=== PATIENT | female | born 1960 | race Caucasian/White ===

== ENCOUNTER 2017-01-25 15:14 | Emergency (ER) | payer BC ==
[2017-01-25 17:44] VITALS: BP 108/62
--- NOTE | 2017-01-25 17:52 | UC ---
Skin Complaint HPI - HPI Summary HPI Summary: Found a tick in the left groin with pain. Tick non-engorged. - History of Current Complaint Time Seen by Provider: 01/25/17 17:41 Stated Complaint: TICK BITE Hx Last Menstrual Period: 07-13-15 - Allergy/Home Medications Allergies/Adverse Reactions: Allergies Allergy/AdvReac Type Severity Reaction Status Date / Time Ciprofloxacin Allergy Hives Verified 01/25/17 17:44 Metronidazole Allergy Hives Verified 01/25/17 17:44 seasonal allergies Allergy Congestion Uncoded 01/25/17 17:44 Home Medications: Home Medications Sertraline* [Zoloft*] 25 mg PO BEDTIME 01/25/17 [History Confirmed 01/25/17] Review of Systems Skin: Rash - tick bite Is Patient Immunocompromised?: No All Other Systems Reviewed And Are Negative: Yes PMH/Surg Hx/FS Hx/Imm Hx Endocrine History: Hypothyroidism Other History Of: Negative For: HIV, Hepatitis B, Hepatitis C - Surgical History Surgical History: Yes Surgery Procedure, Year, and Place: 3 c-sections - Family History Known Family History: Positive: Cardiac Disease Negative: Hypertension, Diabetes - Social History Occupation: Employed Full-time Lives: With Family Alcohol Use: Occasionally Substance Use Type: None Smoking Status (MU): Never Smoked Tobacco Physical Exam Triage Information Reviewed: Yes Appearance: Well-Appearing, No Pain Distress, Well-Nourished Vital Signs Reviewed: Yes Eyes: Positive: Conjunctiva Clear Neck exam: Normal Respiratory Exam: Normal Musculoskeletal Exam: Normal Neurological Exam: Normal Psychological Exam: Normal Skin: Positive: Other - tick bite on the left lateral hip. Course/Dx - Differential Diagnoses - Skin Complaint Differential Diagnoses: Erythema Multiforme, Tick Born Illness, Urticaria - Diagnoses Provider Diagnoses: tick bite left hip Discharge - Discharge Plan Condition: Stable Disposition: HOME Patient Education Materials: Tick Bite (ED) Additional Instructions: Non-engorged tick on less than 24 hours doesn't need antibiotics.
== END 2017-01-25 18:15 | disposition home or self-care (01) ==
LOC: UCCORT 15:14
DX: S30.861A Insect bite (nonvenomous) of abdominal wall, initial encounter (principal); E03.9 Hypothyroidism, unspecified; J30.2 Other seasonal allergic rhinitis; W57.XXXA Bitten or stung by nonvenomous insect and other nonvenomous arthropods, initial encounter; Z88.8 Allergy status to other drugs, medicaments and biological substances; Z88.1 Allergy status to other antibiotic agents
CPT/HCPCS: 99211; G0463

== ENCOUNTER 2017-12-01 10:48 | Emergency (ER) | payer BC ==
[2017-12-01 11:09] VITALS: BP 122/69
--- NOTE | 2017-12-01 11:43 | UC ---
Respiratory Complaint HPI - HPI Summary HPI Summary: states for the past 2 days she has aches, nasal congestion and sinus pressure with some chills but no fever. Denies nausea, sinus pain , cough or sore throat. - History of Current Complaint Chief Complaint: UCGeneralIllness Stated Complaint: SINUS COMPLAINT Time Seen by Provider: 12/01/17 11:15 Hx Obtained From: Patient Hx Last Menstrual Period: August 2017 - pre menopausal ?: No Onset/Duration: Gradual Onset, Lasting Days Severity Initially: Mild Severity Currently: Mild Pain Intensity: 0 Associated Signs And Symptoms: Positive: Chills, URI, Nasal Congestion - Risk Factors Pulmonary Embolism Risk Factors: Negative Cardiac Risk Factors: Negative Pseudomonas Risk Factors: Negative Tuberculosis Risk Factors: Negative - Allergies/Home Medications Allergies/Adverse Reactions: Allergies Allergy/AdvReac Type Severity Reaction Status Date / Time ciprofloxacin Allergy Intermediate Hives Verified 12/01/17 11:10 metronidazole [From Flagyl] Allergy Intermediate Hives Verified 12/01/17 11:10 seasonal allergies Allergy Congestion Uncoded 12/01/17 11:10 Home Medications: Home Medications Acetaminophen [Tylenol Arthritis] 650 mg PO BID 12/01/17 [History Confirmed ] Rosuvastatin Calcium [Crestor] 40 mg PO BEDTIME 12/01/17 [History Confirmed ] PMH/Surg Hx/FS Hx/Imm Hx Previously Healthy: Yes Endocrine History: Hypothyroidism, Dyslipidemia GI/ History: Gastroesophageal Reflux Psychological History: Depression Other History Of: Negative For: HIV, Hepatitis B, Hepatitis C - Surgical History Surgical History: Yes Surgery Procedure, Year, and Place: 3 c-sections - Family History Known Family History: Positive: None, Cardiac Disease Negative: Hypertension, Diabetes - Social History Alcohol Use: Occasionally Substance Use Type: None Smoking Status (MU): Never Smoked Tobacco Review of Systems Constitutional: Chills Skin: Negative ENT: Nasal Discharge, Sinus Congestion Respiratory: Negative Cardiovascular: Negative Gastrointestinal: Negative Genitourinary: Negative Musculoskeletal: Negative Neurological: Negative All Other Systems Reviewed And Are Negative: Yes Physical Exam Triage Information Reviewed: Yes Appearance: Well-Appearing, No Pain Distress, Well-Nourished Vital Signs: Initial Vital Signs Temp 98.3 F 12/01/17 11:04 Pulse 89 12/01/17 11:04 Resp 18 12/01/17 11:04 BP 122/69 12/01/17 11:04 Pulse Ox 98 12/01/17 11:04 Vital Signs Reviewed: Yes Eyes: Positive: Conjunctiva Clear ENT: Positive: Hearing grossly normal, Pharynx normal, TMs normal, Uvula midline Neck: Positive: Supple, Nontender, No Lymphadenopathy Respiratory: Positive: Chest non-tender, Lungs clear, Normal breath sounds, No respiratory distress Cardiovascular: Positive: RRR, No Murmur, Pulses Normal, Brisk Capillary Refill Musculoskeletal: Positive: Strength Intact, ROM Intact, No Edema UC Diagnostic Evaluation - Laboratory O2 Sat by Pulse Oximetry: 98 Respiratory Course/Dx - Course Course Of Treatment: patient with URI symptoms, start normal saline nasal toileting, supportive treatment with rest, oral hydration, ibuprofen as needed for pain. f/u if symptoms worsen. - Differential Dx/Diagnosis Provider Diagnoses: URI viral Discharge - Sign-Out/Discharge Documenting (check all that apply): Patient Departure All imaging exams completed and their final reports reviewed: No Studies - Discharge Plan Condition: Stable Disposition: HOME Patient Education Materials: Viral Syndrome (ED), Ibuprofen (By mouth) Referrals: Larissa Mireles MD [Primary Care Provider] - - Billing Disposition and Condition Condition: STABLE Disposition: Home
== END 2017-12-01 11:43 | disposition home or self-care (01) ==
LOC: UCCORT 10:48
DX: J06.9 Acute upper respiratory infection, unspecified (principal); Z88.1 Allergy status to other antibiotic agents
CPT/HCPCS: 99211; G0463

== ENCOUNTER 2018-06-05 15:42 | Emergency (ER) | payer BC ==
[2018-06-05 15:55] VITALS: BP 149/67
--- NOTE | 2018-06-05 16:11 | UC ---
Throat Pain/Nasal [place] HPI - HPI Summary HPI Summary: patient was around sick realtives last week, she now has increased nasal congestion ear pressure, cough and body aches. PCP gave her tamiful as she was exposed. but was never tested. - History of Current Complaint Chief Complaint: UCRespiratory Stated Complaint: SINUS CONGESTION AND SORE THROAT Time Seen by Provider: 06/05/18 15:58 Hx Obtained From: Patient Hx Last Menstrual Period: August 2017 - pre menopausal Onset/Duration: Sudden Onset, Lasting Days Severity: Severe Pain Intensity: 8 Cough: Productive Associated Signs & Symptoms: Positive: Dysphagia, Sinus Discomfort, Nasal Discharge - Allergies/Home Medications Allergies/Adverse Reactions: Allergies Allergy/AdvReac Type Severity Reaction Status Date / Time ciprofloxacin Allergy Severe Hives Verified 02/02/18 14:13 metronidazole [From Flagyl] Allergy Severe Hives Verified 02/02/18 14:13 seasonal allergies Allergy Intermediate Congestion Uncoded 02/02/18 14:13 PMH/Surg Hx/FS Hx/Imm Hx Previously Healthy: Yes Other History Of: Negative For: HIV, Hepatitis B, Hepatitis C - Surgical History Surgical History: Yes Surgery Procedure, Year, and Place: 3 c-sections - Family History Known Family History: Positive: None, Cardiac Disease Negative: Hypertension, Diabetes - Social History Alcohol Use: Occasionally Substance Use Type: None Smoking Status (MU): Never Smoked Tobacco Review of Systems All Other Systems Reviewed And Are Negative: Yes Constitutional: Positive: Fatigue Skin: Positive: Negative Eyes: Positive: Negative ENT: Positive: Sore Throat, Ear Ache, Nasal Discharge, Sinus Congestion, Sinus Pain/Tenderness Respiratory: Positive: Cough Cardiovascular: Positive: Negative Gastrointestinal: Positive: Negative Genitourinary: Positive: Negative Motor: Positive: Negative Neurovascular: Positive: Negative Musculoskeletal: Positive: Negative Neurological: Positive: Headache Psychological: Positive: Negative Is Patient Immunocompromised?: No Physical Exam Triage Information Reviewed: Yes Appearance: Well-Nourished, Ill-Appearing, Pain Distress Vital Signs: Initial Vital Signs Temp 98.3 F 06/05/18 15:51 Pulse 83 06/05/18 15:51 Resp 18 06/05/18 15:51 BP 149/67 06/05/18 15:51 Pulse Ox 100 06/05/18 15:51 Vital Signs Reviewed: Yes Eye Exam: Normal ENT: Positive: Pharyngeal erythema, Nasal congestion, Tonsillar swelling, Sinus tenderness Dental Exam: Normal Neck exam: Normal Neck: Positive: Supple, Nontender, No Lymphadenopathy Respiratory Exam: Normal Respiratory: Positive: Chest non-tender, Lungs clear, Normal breath sounds Cardiovascular Exam: Normal Cardiovascular: Positive: RRR, No Murmur, Pulses Normal Abdominal Exam: Normal Abdomen Description: Positive: Nontender, No Organomegaly, Soft Bowel Sounds: Positive: Present Musculoskeletal Exam: Normal Musculoskeletal: Positive: Strength Intact, ROM Intact, No Edema Neurological Exam: Normal Neurological: Positive: Alert Psychological Exam: Normal Skin Exam: Normal Throat Pain/Nasal Course/Dx - Course Course Of Treatment: hx obtained, exam performed ,meds reviewed, rapid flu obtained and was neg, treated for sinusitis - Differential Dx/Diagnosis Differential Diagnosis/HQI/PQRI: Influenza, Laryngitis, Otitis Media, Pharyngitis, Sinusitis, URI Provider Diagnosis: Sinusitis Discharge - Sign-Out/Discharge Documenting (check all that apply): Patient Departure All imaging exams completed and their final reports reviewed: No Studies - Discharge Plan Condition: Stable Disposition: HOME Prescriptions: Amoxicillin PO (*) [Amoxicillin 875 MG (*)] 875 mg PO BID #20 tab Patient Education Materials: Sinusitis (ED) Referrals: Larissa Mireles MD [Primary Care Provider] - Additional Instructions: 1. your flu test was negative, you can stop the tamiflu. 2. Start the antibiotic and increase fluid intake 3. Follow up as needed. - Billing Disposition and Condition Condition: STABLE Disposition: Home
[2018-06-05 16:26] LABS: Influenza A Molecular NEGATIVE (Negative); Influenza B Molecular NEGATIVE (Negative)
== END 2018-06-05 16:35 | disposition home or self-care (01) ==
LOC: UCEAST 15:42
DX: J32.9 Chronic sinusitis, unspecified (principal)
CPT/HCPCS: 99212; G0463

== ENCOUNTER 2023-07-04 09:51 | Inpatient (IN) ==
[~2023-07-04 09:51] MED LIST: HYDROmorphone 1 MG/1 ML SYRINGE IV PRN; Naloxone 0.4 mg VIAL 0.4 mg/ml 1 ml VIAL IV PRN; ROPIVACAINE 5 MG/ML 30 ML BTL (0.5%) ONE
[2023-07-04] MEDS ORDERED: Scopolamine 1 mg/72hr PATCH ONE (10:03)
[2023-07-04] MEDS ORDERED: ceFAZolin 2 GM PREMIX 2 GM/50 ML BAG ONE (10:03)
[2023-07-04] MEDS ORDERED: Tranexamic Acid 1 GM/100ML BAG 2,000 MG/200 ML BAG IV ONE (10:03)
[2023-07-04 10:27] LABS: Rapid COVID-19 Molecular Undetected (Undetected)
[2023-07-04] MEDS: Scopolamine 1 mg/72hr PATCH TRANSDERM SCH (10:37)
[2023-07-04] MEDS: Buffered Lidocaine 1% SYRIN 1 ml INTRADERM ONE (10:38)
[2023-07-04] MEDS ORDERED: ROPIVACAINE 5 MG/ML 30 ML BTL (0.5%) ONE (11:37)
[2023-07-04] MEDS ORDERED: Midazolam 2 mg/2 ml VIAL 1 mg/ml 2 ml VIAL (2 mg) ONE ×3 (11:39→12:45)
[2023-07-04] MEDS ORDERED: Lidocaine 2% PF 5 ML VIAL ONE (12:45)
[2023-07-04] MEDS ORDERED: Bupivacaine-MPF SPINAL 7.5 MG/ML - 2ML AMP ONE (13:01)
[2023-07-04] MEDS ORDERED: KETAMINE HCL 10 MG/ML 20 ml VIAL (200 MG) ONE (13:12)
[2023-07-04] MEDS ORDERED: Glycopyrrolate IV 0.2 MG/ML 1 ML VIAL ONE (13:12)
[2023-07-04] MEDS ORDERED: Acetaminophen IV 1 GM/100ML 1,000 MG/100 ML BAG IV ONE (14:35)
[2023-07-04] MEDS ORDERED: Ondansetron 4 mg VIAL 2 MG/ML 2 ml VIAL ONE (14:35)
[2023-07-04] MEDS ORDERED: Morphine 2 MG/ML SYRINGE IV PRN (14:37)
[2023-07-04] MEDS ORDERED: Ondansetron ODT 4 mg TAB 4 MG TAB PO PRN (14:37)
[2023-07-04] MEDS ORDERED: Lactulose 30 ml UDC PO PRN (14:37)
[2023-07-04] MEDS ORDERED: Magnesium Hydroxide LIQ 30 ML UDC PO PRN (14:37)
[2023-07-04] MEDS ORDERED: Propofol 10 MG/ML 20 ML BTL ONE (14:43)
[2023-07-04] MEDS ORDERED: oxyCODONE/Acetamin 5/325 mg TAB ONE (15:28)
[2023-07-04] MEDS: oxyCODONE/Acetamin 5/325 mg TAB PO PRN (15:32)
[2023-07-04] MEDS: Lactated Ringers 1000 ml BAG 1,000 ML IV SCH ×2 (17:10→17:24)
[2023-07-04] MEDS: Magnesium Hydroxide LIQ 30 ML UDC PO SCH (19:46)
[2023-07-04] MEDS: ceFAZolin 1 GM ADVAN 1 GM in NS 0.9% 50 ML 50 ML IVPB SCH (20:02)
[2023-07-04] MEDS: Ondansetron 4 mg VIAL 2 MG/ML 2 ml VIAL IV PRN (22:30)
[2023-07-05 02:45] LABS: Urine Appearance Clear; Urine Bilirubin Negative (Negative); Urine Blood Negative (Negative); Urine Color Light-Yellow; Urine Glucose Negative (Negative); Urine Ketones Negative (Negative); Urine Nitrite Negative (Negative); Urine Protein Negative (Negative); Urine Specific Gravity 1.015 (1.002-1.030); Urine Urobilinogen Negative (Negative)
[2023-07-05 06:17] LABS: Hemoglobin 11.7 g/dL (11.5-14.3); Mean Platelet Volume 7.3 fL (7.5-11.2); Platelet Count 305 10^3/uL (150-450)
[2023-07-05 07:33] LABS: Calcium 8.8 mg/dL (8.6-10.3); Creatinine, Serum 0.71 mg/dL (0.51-0.95); eGFR CKD-EPI 95.5 (>60)
[2023-07-05] MEDS: Vitamin THERAPEUTIC TAB PO SCH (08:34)
[2023-07-05 09:41] VITALS: BP 100/60
== END 2023-07-05 15:00 | disposition home or self-care (01) | DRG 302 ==
LOC: INTOOBSV 09:51 → AA 09:51 → SSU 17:07
PROVIDERS: ADMIT Orthopaedic Surgery Adult Reconstructive Orthopaedic Surgery; ATTEND Orthopaedic Surgery Adult Reconstructive Orthopaedic Surgery

== ENCOUNTER 2024-02-19 11:22 | Observation (INO) ==
[~2024-02-19 11:22] MED LIST changes: -HYDROmorphone 1 MG/1 ML SYRINGE IV PRN; -Naloxone 0.4 mg VIAL 0.4 mg/ml 1 ml VIAL IV PRN
[2024-02-19] MEDS ORDERED: ceFAZolin 2 GM PREMIX 2 GM/50 ML BAG ONE (11:47)
[2024-02-19] MEDS ORDERED: Famotidine IV 10 MG/ML 2 ml VIAL (20 mg) ONE (11:47)
[2024-02-19] MEDS ORDERED: Dexamethasone IV 4 MG/ML VIAL 1 ml VIAL ONE (11:47)
[2024-02-19] MEDS ORDERED: Tranexamic Acid 1 GM/100ML BAG 2,000 MG/200 ML BAG IV ONE (11:53)
[2024-02-19] MEDS: Famotidine IV 10 MG/ML 2 ml VIAL (20 mg) IV ONE (12:03)
[2024-02-19] MEDS: Lactated Ringers 1000 ml BAG 1,000 ML IV SCH ×2 (12:03→17:51)
[2024-02-19] MEDS: Dexamethasone IV 4 MG/ML VIAL 1 ml VIAL IV SLOW PU ONE (12:03)
[2024-02-19] MEDS: Buffered Lidocaine 1% SYRIN 1 ml INTRADERM ONE (12:03)
[2024-02-19 12:15] LABS: Rapid COVID-19 Molecular Undetected (Undetected)
[2024-02-19] MEDS ORDERED: Prochlorperazine 5 mg/ml 2 ml VIAL (10 mg) IV PRN (12:27)
[2024-02-19] MEDS ORDERED: fentaNYL 100 mcg/2 ml 50 MCG/ML VIAL IV PRN (12:27)
[2024-02-19] MEDS ORDERED: Morphine 4 MG/ML VIAL (1 ml) IV PRN (12:27)
[2024-02-19] MEDS ORDERED: Naloxone 0.4 mg VIAL 0.4 mg/ml 1 ml VIAL IV PRN (12:27)
[2024-02-19] MEDS ORDERED: ROPIVACAINE 5 MG/ML 30 ML BTL (0.5%) ONE (12:56)
[2024-02-19] MEDS ORDERED: Midazolam 2 mg/2 ml VIAL 1 mg/ml 2 ml VIAL (2 mg) ONE ×2 (12:57→14:17)
[2024-02-19] MEDS ORDERED: fentaNYL 100 mcg/2 ml 50 MCG/ML VIAL ONE (12:57)
[2024-02-19] MEDS ORDERED: Propofol 10 MG/ML 20 ML BTL ONE (15:21)
[2024-02-19] MEDS ORDERED: Ondansetron ODT 4 mg TAB 4 MG TAB PO PRN (15:23)
[2024-02-19] MEDS ORDERED: Morphine 2 MG/ML SYRINGE IV PRN (15:23)
[2024-02-19] MEDS ORDERED: Magnesium Hydroxide LIQ 30 ML UDC PO PRN (15:23)
[2024-02-19] MEDS ORDERED: Calcium Carb (TUMS) 500 mg CHEW TAB PO PRN (15:23)
[2024-02-19] MEDS ORDERED: Lactulose 30 ml UDC PO PRN (15:23)
[2024-02-19] MEDS ORDERED: Conjugated Estrogens 0.625 TAB PO PRN (17:29)
[2024-02-19] MEDS: Ondansetron 4 mg VIAL 2 MG/ML 2 ml VIAL IV PRN (17:33)
[2024-02-19] MEDS: ceFAZolin 2 GM PREMIX 2 GM/50 ML BAG IV SCH (21:34)
[2024-02-19] MEDS: Magnesium Hydroxide LIQ 30 ML UDC PO SCH (21:53)
[2024-02-20 06:27] LABS: Hematocrit 39.4 % (35-45); Hemoglobin 12.8 g/dL (11.5-14.3); Mean Platelet Volume 7.6 fL (7.5-11.2); Platelet Count 311 10^3/uL (150-450)
[2024-02-20 06:48] LABS: Calcium 9.4 mg/dL (8.6-10.3); Creatinine, Serum 0.69 mg/dL (0.51-0.95); eGFR CKD-EPI 97.5 (>60)
[2024-02-20] MEDS: Vitamin THERAPEUTIC TAB PO SCH (08:11)
[2024-02-20 15:11] VITALS: BP 94/58
== END 2024-02-20 15:00 | disposition home or self-care (01) ==
LOC: OR 11:22 → SSU 11:22
PROVIDERS: ADMIT Orthopaedic Surgery Adult Reconstructive Orthopaedic Surgery; ATTEND Orthopaedic Surgery Adult Reconstructive Orthopaedic Surgery